=== PATIENT | male | born 1985 ===

== ENCOUNTER 2022-04-27 18:21 | Emergency (ER) | payer SELFPAY ==
[2022-04-27] MEDS ORDERED: Acetaminophen 500 MG TAB ONE (20:09)
== END 2022-04-27 20:07 | disposition home or self-care (01) ==
LOC: CSHERS 18:21
DX: S61.412A Laceration without foreign body of left hand, initial encounter (principal); W26.8XXA Contact with other sharp object(s), not elsewhere classified, initial encounter
CPT/HCPCS: 12001

== ENCOUNTER 2025-06-25 05:31 | Emergency (ER) | payer SELFPAY | END 2025-06-25 05:52 | disposition home or self-care (01) | LOC: CSHERS 05:31 | DX: K04.7 Periapical abscess without sinus (principal) | CPT/HCPCS: 99282 ==